=== PATIENT | female | born 1945 | race Caucasian/White ===

== ENCOUNTER 2017-02-20 05:36 | Emergency (ER) | payer MEDICARE, MEDICAID ==
[~2017-02-20] VITALS: Ht 162.6 cm; Wt 66.7 kg
[2017-02-20] MEDS ORDERED: CELEXA40 M1 PO (05:53)
[2017-02-20] MEDS ORDERED: SINGULAIR10 MG PO (05:53)
[2017-02-20] MEDS ORDERED: IBUPROFEN 600M600 MG PO (05:54)
[2017-02-20] MEDS ORDERED: PRILOSEC20 M1 PO (05:54)
[2017-02-20] MEDS ORDERED: BUSPIRONE HCL15 MG PO (05:55)
[2017-02-20 06:10] LABS: HEMOGLOBIN 13.6 g/dL (12.2-16.2); LYMPH # 3.3 K/mm3 (0.7-4.5); LYMPH % 33.2 % (10-50.0)
--- OUTSIDE RECORDS SUMMARY | 2017-02-20 06:29 | External Medical Summary Rpt | CCD ---
Author Author , RAYSHAWN Organization RAYSHAWN Address Unknown Phone [email or web address] Care Team Providers Care Police District Switchboard Operator Name Role Phone [facility], Unavailable Unavailable [facility] Unavailable Unavailable ASSOCIAT, [facility] PETERSON JAM, PETERSON JAM Unavailable Unavailable CHAMBERLAIN MISTY, Unavailable Unavailable CHAMBERLAIN MISTY [facility] Unavailable Unavailable MEDICAL CENTE, [place] Unavailable Unavailable PHYSICIAN PRA, [place] PHYSICIAN PRA [facility]available Unavailable [facility] Unavailable Unavailable ANESTHESIA PSC, [facility] GEOVANY MISTY, GEOVANY Unavailable Unavailable [facility], [facility] Unavailable Unavailable JOEY LAUREN, JOEY LAUREN Unavailable Unavailable [facility] Unavailable Unavailable [facility], [facility] Unavailable Unavailable GROUP P, [facility] SHERI GRE, SHERI GRE Unavailable Unavailable HAJIBRAHIM FESTUS, Unavailable Unavailable [facility] Unavailable Unavailable VISION, [facility] Unavailable Unavailable ASSOCIAT, [facility] Unavailable Unavailable OF STANT, [facility] STANT KOUNS JOSH, KOUNS JOSH Unavailable Unavailable [facility] # Unavailable Unavailable [id number], [facility] # 60057 [facility] & Unavailable Unavailable MEDICAL, [facility] SHERRON FRANCISCO, SHERRON FRANCISCO Unavailable Unavailable [facility], Unavailable Unavailable [facility] Unavailable Unavailable GROUP,, [facility], [facility] Unavailable Unavailable EMERGENCY PHYS, [facility] EMERGENCY PHYS [facility] Unavailable Unavailable [facility] RICARDO JARAMILLO JR EDW, Unavailable Unavailable JR ELLA EDJaved [facility] Unavailable Unavailable SURGERY, [facility] Purpose Continuity of Care Document - 10-22-2010 through 2016 Problems Code Diagnosis DOS Provider Status K529 NONINFECTIV 11-26-2016 [facility] SUR[facility] ITIS & COLITIS UNS K635 POLYP OF 11-26-2016 [facility] SURGERY J449 CHRONIC 02-19-2016 [facility] OBSTRUCTIVE PULMONARY DISEASE UNS M4806 SPINAL 02-19-2016 [facility] STENOSIS LUMBAR REGION N393 STRESS 02-19-2016 [facility] INCONTINENC E FEMALE MALE R159 FULL 02-19-2016 [facility]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 I10 ESSENTIAL 12-18-2015 [facility] PRIMARY HYPERTENSIO N M259 JOINT 12-18-2015 [facility] DISORDER UNSPECIFIED 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 V47264 DERANG POST 11-27-2015 [facility] ORTHOPEDIC MENISC OLD ASSOCIAT TEAR/INJ RT KNEE I214 NON-ST 11-03-2015 [place] ELEVATION REGIONAL MYOCARDIAL PHYSICIAN INFARCTION PRA R05 COUGH 11-03-2015 [place] REG[facility]AL PHYSICIAN PRA R0602 SHORTNESS 11-03-2015 [place] OF BREATH REGIONAL PHYSICIAN PRA C04835 ENCOUNTER 11-03-2015 [facility] EMER[facility]ENC[facility] DEPARTMENT FOR OTHER RADIOLOGY PREPROCEDUR GROUP P AL EXAMINATION V98633 PAIN IN 09-14-2015 [place] [facility] ASSOCIAT M5012 CERVICAL 08-02-2015 [facility] DISC D/O POINTS W/RADICULOP REHAB OF ATHY STANT MID-CERV RGN M5412 RADICULOPAT 07-25-2015 [place] [facility] CERVICAL ORTHOPEDIC REGION ASSOCIAT 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 R37513 PREGLAUCOMA 05-09-2015 JOEY AGUILAR , UNSPECIFIED , UNSPECIFIED EYE P60951 OCULAR 05-09-2015 JOEY AGUILAR HYPERTENSIO N UNSPECIFIED EYE I708 ATHEROSCLER 05-09-2015 JOEY AGUILAR OSIS OF OTHER ARTERIES 4019 UNSPECIFIED 12-01-2014 [facility] ESSENTIAL HEALTH AND HYPERTENSIO WELLNES N 4739 UNSPECIFIED 12-01-2014 [facility] SINUSITIS HEALTH AND WELLNES 496 CHRONIC 12-01-2014 [facility] AIRWAY [facility] AND OBSTRUCTION WELLNES NEC 96269 HOMONYMOUS 10-19-2014 [place] BILATERAL REGIONAL FIELD MEDICAL DEFECTS CENTE VISUAL FIELD 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 OCULAR HYPERTENSIO N 3679 UNSPECIFIED 10-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 DISORDER OF REFRACTION& [place] [address] OTHER 10-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 CHRONIC ALLERGIC CONJUNCTIVI TIS 72379 UNSPECIFIED 10-11-2014 JOEY AGUILAR PREGLAUCOMA 35770 OTHER AND 10-11-2014 JOEY AGUILAR COMBINED FORMS OF SENILE CATARACT 2720 PURE 08-29-2014 [facility] TEROLEMIA GROUP, V700 ROUTINE 08-29-2014 [facility] MEDICAL GROUP, EXAM@HEALTH CARE FACL V770 SCREENING 08-29-2014 [facility] DISORDER GROUP, 7866 SWELLING, 12-29-2013 [place], OR REGIONAL LUMP IN MEDICAL CHEST CENTE 92386 OTH & UNS E 09-16-2012 [facility] COLI INFECTION CLASS ELSW UNS SITE 4589 UNSPECIFIED 09-16-2012 [facility] HYPOTENSION 49284 ACUT 09-16-2012 K[facility]NS J[facility] PYELONEPHRI TIS W/O LES RENAL MEDULRY NECROS 89609 HEMATURIA 09-15-2012 PETERSON JAM UNSPECIFIED 7804 DIZZINESS 09-15-2012 [facility]RAHIM AND FESTUS GIDDINESS 07363 OTHER 09-15-2012 HAJIBRAHIM MALAISE AND FESTUS FATIGUE 31582 ABDOMINAL 09-15-2012 PETERSON JAM PAIN OTHER SPECIFIED SITE 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 18523 DIVERTICULO 08-05-2012 SHERRON FRANCISCO SIS OF COLON V1272 PERSONAL 08-05-2012 JR ELLA HISTORY OF EDW COLONIC POLYPS 60020 PRIMARY 07-27-2012 MED-CARE LOCALIZED DIABETIC & OSTEOARTHRO MEDICAL SIS LOWER LEG 6202 OTHER AND 05-25-2012 CHAMBERLAIN UNSPECIFIED MISTY OVARIAN CYST 7244 THORACIC/IRENE 09-03-2011 [facility] MBOSACRAL NEURITIS/RA DICULITIS UNSPEC 49011 CHRONIC 07-23-2011 SHERRON FRANCISCO CHOLECYSTIT IS 5758 OTHER 07-23-2011 [facility] SPECIFIED H DISORDER OF ANESTHESIA PSC GALLBLADDER 72383 ABDOMINAL 07-23-2011 [facility] PAIN RIGHT PATHOLOGY UPPER ASSOCIAT QUADRANT 4550 INTERNAL 07-10-2011 SHERRON FRANCISCO HEMORRHOIDS WITHOUT MENTION COMP 4011 ESSENTIAL 07-01-2011 GEOVANY MISTY HYPERTENSIO N, BENIGN 05793 PRECORDIAL 07-01-2011 GEOVANY MISTY PAIN 25078 NONSPECIFIC 07-01-2011 GEOVANY MISTY ABNORMAL ELECTROCARD IOGRAM V7281 PRE-OPERATI 07-01-2011 GEOVANY MISTY VE CARDIOVASCU LAR EXAMINATION 82269 SHORTNESS 06-26-2011 GEOVANY MISTY OF BREATH 33038 CORONARY 06-19-2011 GEOVANY MISTY ATHEROSCLER OSIS [place] CORONARY ARTERY 7231 CERVICALGIA 06-17-2011 [facility] STANT 7242 LUMBAGO 06-17-2011 [facility] OF [place] 82023 COR 06-10-2011 SHERRON SINGH ATHEROSLERO UNSPEC TYPE VESSEL [place]/CHERYL T 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 62686 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 3670 HYPERMETROP 06-05-2011 [facility] [place] 56091 CHRONIC 06-05-2011 PAULINE FOLLICULAR AND RAMIREZ CONJUNCTIVI VISION TIS 7243 SCIATICA 05-30-2011 SHERI GRE 09208 SECONDARY 04-09-2011 SHERI GRE LOCALIZED OSTEOARTHRO SIS LOWER LEG 16921 PAIN IN 04-09-2011 SHERI GRE JOINT, LOWER LEG 28025 OSTEOARTHRO 03-25-2011 [place] SIS UNSPEC REGIONAL WHETHER MEDICAL GEN/LOC CENTE LOWER LEG 77649 EFFUSION OF 10-30-2010 [facility] LOWER LEG [place] JOINT RICARDO 7295 PAIN IN 10-30-2010 [facility] TISSUES OF LIMB 15417 SWELLING OF 10-30-2010 [facility] [facility] 52073 DEGEN 10-25-2010 [facility] OSACRAL PHYS INTERVERTEB RAL DISC F32.9 Major depressive disorder, single episode, unspecified I10 Essential (primary) hypertensio n J44.9 Chronic obstructive pulmonary disease, unspecified N39.0 Urinary tract infection Z13.1 Encounter for screening for diabetes mellitus Z13.89 Encounter for screening for other disorder Z68.28 Body mass index (BMI) 28.0-28.9, adult Z68.30 Body mass index (BMI) 30.0-30.9, adult Medications Na ND Rx Da Fi Fi Am Da Di Ph RX Ph St me C No te ll ll ou ys ag ar # ys at rm s nt no ma ic us Or Da si cy ia de te s n re d LO 00 10 11 30 30 00 KR Ac RA 78 -2 -1 .0 00 OG ti TA 15 0- 7- 00 06 ER ve DI 07 20 20 46 NE 70 17 17 91 PH 1 71 AR 10 MA CY MG L- TA 41 BL 1 ET LO 00 08 09 30 30 00 KR Ac RA 78 -3 -2 .0 00 OG ti TA 15 1- 9- 00 06 ER ve DI 07 20 20 42 NE 70 17 17 61 PH 1 98 AR 10 MA CY MG L- TA 41 BL 1 ET LO 00 07 08 30 30 00 KR Ac RA 78 -2 -2 .0 00 OG ti TA 15 9- 5- 00 06 ER ve DI 07 20 20 42 NE 70 17 17 61 PH 1 98 AR 10 MA CY MG L- TA 41 BL 1 ET LO 00 06 07 30 30 00 KR Ac RA 78 -2 -2 .0 00 OG ti TA 15 8- 1- 00 06 ER ve DI 07 20 20 42 NE 70 17 17 61 PH 1 98 AR 10 MA CY MG L- TA 41 BL 1 ET LO 00 05 06 30 30 00 KR Ac RA 78 -3 -2 .0 00 OG ti TA 15 1- 3- 00 06 ER ve DI 07 20 20 42 NE 70 17 17 61 PH 1 98 AR 10 MA CY MG L- TA 41 BL 1 ET LO 00 05 30 30 00 KR Ac RA 78 -0 -0 .0 00 OG ti TA 15 5- 2- 00 06 ER ve DI 07 20 20 42 NE 70 17 17 61 PH 1 98 AR 10 MA CY MG L- TA 41 BL 1 ET LO 00 03 04 30 30 00 KR Ac RA 78 -1 -1 .0 00 OG ti TA 15 6- 4- 00 06 ER ve DI 07 20 20 42 NE 70 17 17 61 PH 1 98 AR 10 MA CY MG L- TA 41 BL 1 ET LO 00 02 03 30 30 00 KR Ac RA 78 -1 -1 .0 00 OG ti TA 15 1- 0- 00 06 ER ve DI 07 20 20 35 NE 70 17 17 29 PH 1 73 AR 10 MA CY MG L- TA 41 BL 1 ET LO 00 01 02 30 30 00 KR Ac RA 78 -0 -0 .0 00 OG ti TA 15 7- 3- 00 06 ER ve DI 07 20 20 35 NE 70 17 17 29 PH 1 73 AR 10 MA CY MG L- TA 41 BL 1 ET IB 55 08 10 2 90 30 KR 60 CA Ac UP 11 -1 -2 .0 OG 66 MP ti RO 10 6- 2- 00 ER 36 BE ve FE 68 20 20 5 LL N 40 11 11 PH 80 5 AR DE 0 MA NN MG CY IS # TA BL 24 ET 41 1 SD 37 08 10 3 30 30 KR 60 CA Ac IL 00 -2 -1 .0 OG 67 MP ti OS 00 6- 9- 00 ER 90 BE ve EC 45 20 20 8 LL 50 11 11 PH OT 4 AR DE C MA NN 20 CY IS .6 # MG 24 41 TA 1 BL ET 00 09 10 5 30 30 KR 60 CA Ac 00 -1 -1 .0 OG 70 MP ti 60 4- 1- 00 ER 60 BE ve 11 20 20 5 LL 73 11 11 PH 1 AR DE MA NN CY IS # 24 41 1 BU 00 09 10 5 60 30 KR 60 CA Ac SP 59 -1 -1 .0 OG 70 MP ti IR 10 4- 1- 00 ER 60 BE ve ON 65 20 20 6 LL E 80 11 11 PH HC 1 AR DE L MA NN 10 CY IS # MG 24 TA 41 BL 1 ET SE 68 09 10 3 30 30 KR 60 CA Ac RT 18 -1 -1 .0 OG 70 MP ti RA 00 2- 1- 00 ER 30 BE ve LI 35 20 20 5 LL NE 30 11 11 PH 6 AR DE HC MA NN L CY IS 10 # 0 MG 24 41 TA 1 BL ET TR 00 09 10 3 30 30 KR 60 CA Ac AZ 60 -1 -1 .0 OG 70 MP ti OD 36 2- 0- 00 ER 30 BE ve ON 16 20 20 4 LL E 12 11 11 PH 10 1 AR DE 0 MA NN MG CY IS # TA BL 24 ET 41 1 SD 37 08 09 3 30 30 KR 60 CA Ac IL 00 -2 -2 .0 OG 67 MP ti OS 00 6- 2- 00 ER 90 BE ve EC 45 20 20 8 LL 50 11 11 PH OT 3 AR DE C MA NN 20 CY IS .6 # MG 24 41 TA 1 BL ET IB 55 08 09 2 90 30 KR 60 CA Ac UP 11 -1 -1 .0 OG 66 MP ti RO 10 6- 6- 00 ER 36 BE ve FE 68 20 20 5 LL N 40 11 11 PH 80 5 AR DE 0 MA NN MG CY IS # TA BL 24 ET 41 1 00 09 09 5 30 30 KR 60 CA Ac 00 -1 -1 .0 OG 70 MP ti 60 4- 4- 00 ER 60 BE ve 11 20 20 5 LL 73 11 11 PH 1 AR DE MA NN CY IS # 24 41 1 BU 00 09 09 5 60 30 KR 60 CA Ac SP 59 -1 -1 .0 OG 70 MP ti IR 10 4- 4- 00 ER 60 BE ve ON 65 20 20 6 LL E 80 11 11 PH HC 1 AR DE L MA NN 10 CY IS # MG 24 TA 41 BL 1 ET SE 68 09 09 3 30 30 KR 60 CA Ac RT 18 -1 -1 .0 OG 70 MP ti RA 00 2- 3- 00 ER 30 BE ve LI 35 20 20 5 LL NE 30 11 11 PH 6 AR DE HC MA NN L CY IS 10 # 0 MG 24 41 TA 1 BL ET TR 00 09 09 3 30 30 KR 60 CA Ac AZ 60 -1 -1 .0 OG 70 MP ti OD 36 2- 2- 00 ER 30 BE ve ON 16 20 20 4 LL E 12 11 11 PH 10 1 AR DE 0 MA NN MG CY IS # TA BL 24 ET 41 1 SD 37 08 08 3 30 30 KR 60 CA Ac IL 00 -2 -2 .0 OG 67 MP ti OS 00 6- 6- 00 ER 90 BE ve EC 45 20 20 8 LL 50 11 11 PH OT 3 AR DE C MA NN 20 CY IS .6 # MG 24 41 TA 1 BL ET SE 68 03 08 5 30 30 KR 60 SE Ac RT 18 -0 -1 .0 OG 46 IT ti RA 00 8- 7- 00 ER 28 Z ve LI 35 20 20 0 SC NE 30 11 11 PH OT 6 AR T HC MA L CY 10 # 0 MG 24 41 TA 1 BL ET IB 55 08 08 2 90 30 KR 60 CA Ac UP 11 -1 -1 .0 OG 66 MP ti RO 10 6- 6- 00 ER 36 BE ve FE 68 20 20 5 LL N 40 11 11 PH 80 5 AR DE 0 MA NN MG CY IS # TA BL 24 ET 41 1 00 03 08 5 30 30 KR 60 SE Ac 00 -0 -1 .0 OG 46 IT ti 60 8- 4- 00 ER 28 Z ve 11 20 20 1 SC 73 11 11 PH OT 1 AR T MA CY # 24 41 1 BU 00 03 08 5 60 30 KR 60 SE Ac SP 59 -0 -1 .0 OG 46 IT ti IR 10 8- 4- 00 ER 27 Z ve ON 65 20 20 8 SC E 80 11 11 PH OT HC 1 AR T L MA 10 CY # MG 24 TA 41 BL 1 ET TR 00 03 08 5 30 30 KR 60 SE Ac AZ 60 -0 -1 .0 OG 46 IT ti OD 36 8- 4- 00 ER 27 Z ve ON 16 20 20 9 SC E 12 11 11 PH OT 10 1 AR T 0 MA MG CY # TA BL 24 ET 41 1 TR 65 08 08 0 20 2 KR 44 MO Ac AM 16 -1 -1 .0 OG 71 RG ti AD 20 1- 1- 00 ER 24 AN ve OL 62 20 20 6 75 11 11 PH JR HC 0 AR L MA SHANNAN 50 CY HN # R MG 24 TA 41 BL 1 ET ME 59 08 08 0 21 6 KR 60 MO Ac TH 74 -1 -1 .0 OG 65 RG ti YL 60 1- 1- 00 ER 65 AN ve SD 00 20 20 0 ED 10 11 11 PH JR NI 3 AR SO MA SHANNAN LO CY HN NE # R 4 24 MG 41 1 DO SE PK SD 00 08 08 0 6. 25 KR 60 MO Ac OV 08 -0 -0 70 OG 65 OR ti EN 51 8- 8- 0 ER 10 E ve TI 13 20 20 2 SC L 20 11 11 PH OT HF 1 AR T A MA G 90 CY # MC G 24 IN 41 VILCHIS 1 LE R Encounters Encounter Start End Date Code Location Performer Type Date [facility] [place] - 6 6 [facility] 6 6 [facility] 5 5 [facility] - 5 5 [facility] [place] - 5 5 [facility] [place] - 4 4 [facility] [place] - 2 2 [facility] [place] - 2 2 [facility] - 1 [facility]
--- OUTSIDE RECORDS SUMMARY | 2017-02-20 06:29 | External Medical Summary Rpt | CCD ---
Author Author , RAYSHAWN Organization RAYSHAWN Address Unknown Phone [email or web address] Care Team Providers Care Custodial Engineer Name Role Phone [facility], Unavailable Unavailable [facility] Unavailable Unavailable ASSOCIAT, [facility] PETERSON JAM, PETERSON JAM Unavailable Unavailable CHAMBERLAIN MISTY, Unavailable Unavailable CHAMBERLAIN MISTY [facility] Unavailable Unavailable MEDICAL CENTE, [facility] Unavailable Unavailable PHYSICIAN PRA, [facility] PHYSICIAN PRA [facility], Unavailable Unavailable [facility] Unavailable Unavailable ANESTHESIA PSC, [facility] ANESTHESIA [facility]SC GEOVANY MISTY, GEOVANY Unavailable Unavailable [facility], [facility] Unavailable Unavailable JOEY LAUREN, JOEY LAUREN Unavailable Unavailable [facility] Unavailable Unavailable [facility] Unavailable Unavailable GROUP P, [facility] SHERI GRE, SHERI GRE Unavailable Unavailable [facility] FE[facility], Unavailable Unavailable [facility] Unavailable Unavailable VISION, [facility] Unavailable Unavailable ASSOCIAT, [facility] Unavailable Unavailable OF STANT, [facility] KOUNS JOSH, KOUNS JOSH Unavailable Unavailable [facility] # Unavailable Unavailable [id number], [facility] # [id number] [facility] & Unavailable Unavailable MEDICAL, [facility] SHERRON FRANCISCO, SHERRON FRANCISCO Unavailable Unavailable [facility], Unavailable Unavailable [facility] Unavailable Unavailable GROUP,, [facility], [facility] Unavailable Unavailable EMERGENCY PHYS, [facility] Unavailable Unavailable [facility] JARAMILLO JR EDW, Unavailable Unavailable JR ELLA EDJaved [facility] Unavailable Unavailable SURGERY, [facility] Purpose Continuity of Care Document - 10-22-2010 through 2016 Problems Code Diagnosis DOS Provider Status K529 NONINFECTIV 11-26-2016 [facility] SURGERY ITIS & COLITIS UNS K635 POLYP OF 11-26-2016 [facility] SURGERY J449 CHRONIC 02-19-2016 [facility] OBSTRUCTIVE PULMONARY DISEASE UNS M4806 SPINAL 02-19-2016 [facility] STENOSIS LUMBAR REGION N393 STRESS 02-19-2016 [facility] INCONTINENC E FEMALE MALE R159 FULL 02-19-2016 [facility]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 I10 ESSENTIAL 12-18-2015 [facility] PRIMARY HYPERTENSIO N M259 JOINT 12-18-2015 [facility] DISORDER UNSPECIFIED 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 [id number] DERANG POST 11-27-2015 [facility] ORTHOPEDIC MENISC OLD ASSOCIAT TEAR/INJ RT KNEE I214 NON-ST 11-03-2015 [place] ELEVATION REGIONAL MYOCARDIAL PHYSICIAN INFARCTION PRA R05 COUGH 11-03-2015 [place] REGIONAL PHYSICIAN PRA R0602 SHORTNESS 11-03-2015 [place] OF BREATH REGIONAL PHYSICIAN PRA S19356 ENCOUNTER 11-03-2015 [facility] OTHER RADIOLOGY PREPROCEDUR GROUP P AL EXAMINATION Q34598 PAIN IN 09-14-2015 [place] RIGHT [facility]NEE ORTHOPEDIC ASSOCIAT M5012 CERVICAL 08-02-2015 [facility] DISC D/O POINTS W/RADICULOP REHAB OF ATHY STANT MID-CERV RGN M5412 RADICULOPAT 07-25-2015 [place] HY CERVICAL ORTHOPEDIC REGION ASSOCIAT K80228 COMBINED 05-09-2015 JOEY 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 X88904 PREGLAUCOMA 05-09-2015 JOEY AGUILAR , UNSPECIFIED , UNSPECIFIED EYE Q73671 OCULAR 05-09-2015 JOEY AGUILAR HYPERTENSIO N UNSPECIFIED EYE I708 ATHEROSCLER 05-09-2015 JOEY AGUILAR OSIS OF OTHER ARTERIES 4019 UNSPECIFIED 12-01-2014 [facility] ESSENTIAL HEALTH AND HYPERTENSIO WELLNES N 4739 UNSPECIFIED 12-01-2014 [facility] SINUSITIS HEALTH AND WELLNES 496 CHRONIC 12-01-2014 [facility]WAY [facility] AND OBSTRUCTION WELLNES NEC 12946 HOMONYMOUS 10-19-2014 [place] BILATERAL REGIONAL FIELD MEDICAL DEFECTS CENTE VISUAL FIELD 05354 BORDERLINE 10-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 GLAUCOMA WITH OCULAR HYPERTENSIO N 3679 UNSPECIFIED 10-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 DISORDER OF REFRACTION& [place] [address] OTHER 10-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 CHRONIC ALLERGIC CONJUNCTIVI TIS 36550 UNSPECIFIED 10-11-2014 JOEY AGUILAR PREGLAUCOMA 41168 OTHER AND 10-11-2014 JOEY AGUILAR COMBINED FORMS OF SENILE CATARACT 2720 PURE 08-29-2014 [facility] TEROLEMIA GROUP, V700 ROUTINE 08-29-2014 [facility] MEDICAL GROUP, EXAM@HEALTH CARE FACL V770 SCREENING 08-29-2014 [facility] DISORDER GROUP, 7866 SWELLING, 12-29-2013 [place], OR REGIONAL LUMP IN MEDICAL CHEST CENTE 65717 OTH & UNS E 09-16-2012 [facility] COLI INFECTION CLASS ELSW UNS SITE 4589 UNSPECIFIED 09-16-2012 [facility] HYPOTENSION 86976 ACUT 09-16-2012 K[facility]NS JOS[facility] PYELONEPHRI TIS W/O LES RENAL MEDULRY NECROS 10677 HEMATURIA 09-15-2012 PETERSON JAM UNSPECIFIED 7804 DIZZINESS 09-15-2012 HAJIB[facility]HIM AND FESTUS GIDDINESS 62297 OTHER 09-15-2012 HAJIBRAHIM MALAISE AND FESTUS FATIGUE 88480 ABDOMINAL 09-15-2012 PETERSON JAM PAIN OTHER SPECIFIED SITE 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 21735 DIVERTICULO 08-05-2012 SHERRON FRANCISCO SIS OF COLON V1272 PERSONAL 08-05-2012 JR ELLA HISTORY OF EDW COLONIC POLYPS 43075 PRIMARY 07-27-2012 [facility] LOCALIZED DIABETIC & OSTEOARTHRO MEDICAL SIS LOWER LEG 6202 OTHER AND 05-25-2012 CHAMBERLAIN UNSPECIFIED MISTY OVARIAN CYST 7244 THORACIC/IRENE 09-03-2011 [facility] MBOSACRAL NEURITIS/RA DICULITIS UNSPEC 13714 CHRONIC 07-23-2011 SHERRON FRANCISCO CHOLECYSTIT IS 5758 OTHER 07-23-2011 [facility] SPECIFIED H DISORDER OF ANESTHESIA PSC GALLBLADDER 57466 ABDOMINAL 07-23-2011 [facility] PAIN RIGHT PATHOLOGY UPPER ASSOCIAT QUADRANT 4550 INTERNAL 07-10-2011 SHERRON FRANCISCO HEMORRHOIDS WITHOUT MENTION COMP 4011 ESSENTIAL 07-01-2011 GEOVANY MISTY HYPERTENSIO N, BENIGN 26452 PRECORDIAL 07-01-2011 GEOVANY MISTY PAIN 26497 NONSPECIFIC 07-01-2011 GEOVANY MISTY ABNORMAL ELECTROCARD IOGRAM V7281 PRE-OPERATI 07-01-2011 GEOVANY MISTY VE CARDIOVASCU LAR EXAMINATION 90216 SHORTNESS 06-26-2011 GEOVANY MISTY OF BREATH 45965 CORONARY 06-19-2011 GEOVANY MISTY ATHEROSCLER OSIS [place] CORONARY ARTERY 7231 CERVICALGIA 06-17-2011 [facility] 7242 LUMBAGO 06-17-2011 [facility] OF [place] 58194 COR 06-10-2011 SHERRON SINGH ATHEROSLERO UNSPEC TYPE VESSEL [place]/CHERYL T 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 09738 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 3670 HYPERMETROP 06-05-2011 [facility] [place] 36391 CHRONIC 06-05-2011 PAULINE FOLLICULAR AND RAMIREZ CONJUNCTIVI VISION TIS 7243 SCIATICA 05-30-2011 SHERI GRE 09784 SECONDARY 04-09-2011 [facility] GRE LOCALIZED OSTEOARTHRO SIS LOWER LEG 46689 PAIN IN 04-09-2011 SHERI GRE JOINT, LOWER LEG 67782 OSTEOARTHRO 03-25-2011 [place] SIS UNSPEC REGIONAL WHETHER MEDICAL GEN/LOC CENTE LOWER LEG 39158 EFFUSION OF 10-30-2010 [facility] LOWER LEG [place] JOINT RICARDO 7295 PAIN IN 10-30-2010 [facility] TISSUES OF LIMB 78380 SWELLING OF 10-30-2010 [facility] [place] [facility] 18521 DEGEN 10-25-2010 [facility] OSACRAL [...] End Date Code Location Performer Type Date [facility] [place] - [address] [facility], [facility] 6 6 [facility] 5 5 [facility] - [address] [facility] - [address] [facility] - [address] [facility] [place] - [address] [facility] [place] - [address] [facility] - 1 [facility]
--- OUTSIDE RECORDS SUMMARY | 2017-02-20 06:31 | External Medical Summary Rpt | CCD ---
Author Author , RAYSHAWN Organization [facility] Address Unknown Phone [email or web address] Care Team Providers Care Wireline Operator Name Role Phone [facility], Unavailable Unavailable [facility] Unavailable Unavailable ASSOCIAT, [facility] PETERSON JAM, PETERSON JAM Unavailable Unavailable CHAMBERLAIN MISTY, Unavailable Unavailable CHAMBERLAIN MISTY [facility] Unavailable Unavailable MEDICAL CENTE, [facility] Unavailable Unavailable PHYSICIAN PRA, [facility], Unavailable Unavailable [facility] Unavailable Unavailable ANESTHESIA P[facility], [facility] GEOVANY MISTY, GEOVANY Unavailable Unavailable [facility], [facility] Unavailable Unavailable JOEY LAUREN, JOEY LAUREN Unavailable Unavailable [facility] Unavailable Unavailable [facility], [facility] Unavailable Unavailable GROUP P, [facility] SHERI GRE, SHERI GRE Unavailable Unavailable HAJIBRAHIM FEST[facility], Unavailable Unavailable [facility] Unavailable Unavailable V[facility], [facility] Unavailable Unavailable ASSOCIAT, [facility] Unavailable Unavailable OF STANT, [facility] KOUNS JOSH, KOUNS JOSH Unavailable Unavailable [facility] # Unavailable Unavailable [id number], [facility] # [id number] [facility] & [facility]available Unavailable MEDICAL, [facility] SHERRON FRANCISCO, SHERRON FRANCISCO Unavailable Unavailable [facility], Unavailable Unavailable [facility] Unavailable Unavailable GROUP,, [facility], [facility] Unavailable Unavailable EMERGENCY PHYS, [facility] Unavailable Unavailable [facility] RICARDO JARAMILLO JR EDW, Unavailable Unavailable JR ELLA EDW [facility] Unavailable Unavailable SURGERY, [facility] Purpose Continuity of Care Document - 10-22-2010 through 2016 Problems Code Diagnosis DOS Provider Status K529 NONINFECTIV 11-26-2016 [facility] SURGERY ITIS & COLITIS UNS K635 POLYP OF 11-26-2016 [facility] J449 CHRONIC 02-19-2016 [facility] OBSTRUCTIVE PULMONARY DISEASE UNS M4806 SPINAL 02-19-2016 [facility] STENOSIS LUMBAR REGION N393 STRESS 02-19-2016 [facility] INCONTINENC E FEMALE MALE 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 02-19-2016 [facility]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 I10 ESSENTIAL 12-18-2015 [facility] PRIMARY HYPERTENSIO N M259 JOINT 12-18-2015 [facility] DISORDER UNSPECIFIED 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 K95804 DERANG POST 11-27-2015 [facility] ORTHOPEDIC MENISC OLD ASSOCIAT TEAR/INJ RT KNEE I214 NON-ST 11-03-2015 [facility] MYOCARDIAL PHYSICIAN INFARCTION PRA R05 COUGH 11-03-2015 [facility] PHYSICIAN PRA R0602 SHORTNESS 11-03-2015 [place] OF BREATH REGIONAL PHYSICIAN PRA P24054 ENCOUNTER 11-03-2015 [facility] RAD[facility] PREPROCEDUR GROUP P AL EXAMINATION B68806 PAIN IN 09-14-2015 [facility]IC ASSOCIAT M5012 CERVICAL 08-02-2015 [facility] DISC D/O POINTS W/RADICULOP REHAB OF [place] MID-CERV RGN M5412 RADICULOPAT 07-25-2015 [facility]THOP[facility]IC REGION ASSOCIAT 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 A66567 PREGLAUCOMA 05-09-2015 JOEY AGUILAR , UNSPECIFIED , UNSPECIFIED EYE O49557 OCULAR 05-09-2015 JOEY AGUILAR HYPERTENSIO N UNSPECIFIED EYE I708 ATHEROSCLER 05-09-2015 JOEY AGUILAR OSIS OF OTHER ARTERIES 4019 UNSPECIFIED 12-01-2014 [facility] ESSENTIAL HEALTH AND HYPERTENSIO WELLNES N 4739 UNSPECIFIED 12-01-2014 [facility] SINUSITIS HEALTH AND WELLNES 496 CHRONIC 12-01-2014 [facility] AIRWAY HEALTH AND OBSTRUCTION WELLNES NEC 07517 HOMONYMOUS 10-19-2014 [place] BILATERAL REGIONAL FIELD MEDICAL DEFECTS CENTE VISUAL FIELD 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 3679 UNSPECIFIED 10-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 DISORDER OF REFRACTION& [place] [address] OTHER 10-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 CHRONIC ALLERGIC CONJUNCTIVI TIS 96277 UNSPECIFIED 10-11-2014 JOEY AGUILAR PREGLAUCOMA 14739 OTHER AND 10-11-2014 JOEY AGUILAR COMBINED FORMS OF SENILE CATARACT 2720 PURE 08-29-2014 [facility] TEROLEMIA GROUP, V700 ROUTINE 08-29-2014 [facility] MEDICAL GROUP, EXAM@HEALTH CARE FACL V770 SCREENING 08-29-2014 [facility] DISORDER GROUP, 7866 SWELLING, 12-29-2013 [place], OR REGIONAL LUMP IN MEDICAL CHEST CENTE 58651 OTH & UNS E 09-16-2012 KOUNS J[facility] COLI INFECTION CLASS ELSW UNS SITE 4589 UNSPECIFIED 09-16-2012 [facility] HYPOTENSION 28580 ACUT 09-16-2012 KOUNS JOSH PYELONEPHRI TIS W/O LES RENAL MEDULRY NECROS 95744 HEMATURIA 09-15-2012 PETERSON JAM UNSPECIFIED 7804 DIZZINESS 09-15-2012 HAJIBRAHIM AND FESTUS GIDDINESS 82421 OTHER 09-15-2012 HAJIBRAHIM MALAISE AND FESTUS FATIGUE 01536 ABDOMINAL 09-15-2012 PETERSON JAM PAIN OTHER SPECIFIED SITE 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 05462 DIVERTICULO 08-05-2012 SHERRON FRANCISCO SIS OF COLON V1272 PERSONAL 08-05-2012 JR ELLA HISTORY OF EDW COLONIC POLYPS 57188 PRIMARY 07-27-2012 [facility] LOCALIZED DIABETIC & OSTEOARTHRO MEDICAL SIS LOWER LEG 6202 OTHER AND 05-25-2012 CHAMBERLAIN UNSPECIFIED MISTY OVARIAN CYST 7244 THORACIC/IRENE 09-03-2011 [facility] MBOSACRAL NEURITIS/RA DICULITIS UNSPEC 45794 CHRONIC 07-23-2011 SHERRON FRANCISCO CHOLECYSTIT IS 5758 OTHER 07-23-2011 [facility] SPECIFIED H DISORDER OF ANESTHESIA PSC GALLBLADDER 67101 ABDOMINAL 07-23-2011 [facility] RIGHT PATHOLOGY UPPER ASSOCIAT QUADRANT 4550 INTERNAL 07-10-2011 SHERRON FRANCISCO HEMORRHOIDS WITHOUT MENTION COMP 4011 ESSENTIAL 07-01-2011 GEOVANY MISTY HYPERTENSIO N, BENIGN 85011 PRECORDIAL 07-01-2011 GEOVANY MISTY PAIN 86757 NONSPECIFIC 07-01-2011 GEOVANY MISTY ABNORMAL ELECTROCARD IOGRAM V7281 PRE-OPERATI 07-01-2011 GEOVANY MISTY VE CARDIOVASCU LAR EXAMINATION 63058 SHORTNESS 06-26-2011 GEOVANY MISTY OF BREATH 17538 CORONARY 06-19-2011 GEOVANY MISTY ATHEROSCLER OSIS [place] CORONARY ARTERY 7231 CERVICALGIA 06-17-2011 [facility] 7242 LUMBAGO 06-17-2011 [facility] [address] COR 06-10-2011 SHERRON SINGH ATHEROSLERO UNSPEC TYPE VESSEL [place]/CHERYL T 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 11936 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 3670 HYPERMETROP 06-05-2011 [facility] [place] 50483 CHRONIC 06-05-2011 PAULINE FOLLICULAR AND RAMIREZ CONJUNCTIVI VISION TIS 7243 SCIATICA 05-30-2011 SHERI GRE 95422 SECONDARY 04-09-2011 SHERI GRE LOCALIZED OSTEOARTHRO SIS LOWER LEG 10977 PAIN IN 04-09-2011 SHERI GRE JOINT, LOWER LEG 23535 OSTEOARTHRO 03-25-2011 [place] SIS UNSPEC REGIONAL WHETHER MEDICAL GEN/LOC CENTE LOWER LEG 09662 EFFUSION OF 10-30-2010 [facility] LOWER LEG [facility] JOINT RICARDO 7295 PAIN IN 10-30-2010 [facility] TISSUES OF LIMB 67543 SWELLING OF 10-30-2010 [facility] [facility] 07978 DEGEN 10-25-2010 [facility] OSACRAL PHYS INTERVERTEB RAL DISC Medications Na ND Rx Da Fi Fi [...] 00 OG ti TA 15 6- 4- 06 ER ve DI 07 20 20 [...] # TA BL 24 ET 41 1 WA 37 08 10 3 30 30 KR 60 CA Ac IL 00 -2 -1 .0 OG 67 MP ti OS 00 6- 9 ER 90 BE ve EC 45 20 20 8 LL 50 11 11 PH OT 4 AR DE C MA NN 20 CY IS .6 # MG 24 41 TA 1 BL ET SE 68 09 10 3 30 [...] TA 41 BL 1 ET TR 00 09 10 3 30 30 KR 60 CA Ac AZ 60 -1 -1 .0 OG 70 MP ti OD 36 2- 0- 00 ER 30 BE ve ON 16 20 20 4 LL E 12 11 11 PH 10 1 AR DE 0 MA NN MG CY IS # TA BL 24 ET 41 1 WA 37 08 09 3 30 30 KR [...] # TA BL 24 ET 41 1 WA 37 08 08 3 30 30 KR [...] 1- 1- 00 ER 65 AN ve WA 00 20 20 0 ED 10 11 11 PH JR NI 3 AR SO MA SHANNAN LO CY HN NE # R 4 24 MG 41 1 DO SE PK WA 00 08 08 0 6. 25 KR [...] End Date Code Location Performer Type Date [facility] - 6 6 [facility] 6 6 [facility] 5 5 [facility] - 5 5 [facility] - 5 5 [facility] - 4 4 [facility] [place] - 2 2 [facility] [place] - 2 2 [facility] - 1 [facility]
--- OUTSIDE RECORDS SUMMARY | 2017-02-20 06:31 | External Medical Summary Rpt | CCD ---
Author Author , RAYSHAWN Organization [facility] Address Unknown Phone [email or web address] Care Team Providers Care Employee Benefits Specialist Name Role Phone [facility], Unavailable Unavailable [facility] Unavailable Unavailable ASSOCIAT, [facility] PETERSON JAM, PETERSON JAM Unavailable Unavailable CHAMBERLAIN MISTY, Unavailable Unavailable CHAMBERLAIN MISTY [facility] Unavailable Unavailable MEDICAL CENTE, [facility] Unavailable Unavailable PHYSICIAN PRA, [facility], Unavailable Unavailable [facility] Unavailable Unavailable ANESTHESIA PSC, [facility] GEOVANY MISTY, GEOVANY Unavailable Unavailable [facility], [facility] Unavailable Unavailable JOEY LAUREN, JOEY LAUREN Unavailable Unavailable [facility] Unavailable Unavailable [facility], [facility] Unavailable Unavailable GROUP P, [facility] SHERI GRE, SHERI GRE Unavailable Unavailable [facility], Unavailable Unavailable [facility] Unavailable Unavailable VISION, [facility] Unavailable Unavailable ASSOCIAT, [facility] Unavailable Unavailable OF STANT, [facility] KOUNS JOSH, KOUNS JOSH Unavailable Unavailable [facility] # Unavailable Unavailable [id number], [facility] # [id number] [facility] & Unavailable Unavailable MEDICAL, [facility] SHERRON FRANCISCO, SHERRON FRANCISCO Unavailable Unavailable [facility], Unavailable Unavailable [facility] Unavailable Unavailable GROUP,, [facility], [facility] Unavailable Unavailable EMERGENCY PHYS, [facility] EMERGENCY PHYS [facility] Unavailable Unavailable [facility] JR EDW, Unavailable Unavailable JR ELLA EDW [facility] Unavailable Unavailable SURGERY, [facility] Purpose Continuity of Care Document - 10-22-2010 through 2016 Problems Code Diagnosis DOS Provider Status K529 NONINFECTIV 11-26-2016 [facility] SURGERY ITIS & COLITIS UNS K635 POLYP OF 11-26-2016 [facility] GENERAL [facility] J449 CHRONIC 02-19-2016 [facility] OBSTRUCTIVE PULMONARY DISEASE UNS M4806 SPINAL 02-19-2016 [facility] STENOSIS LUMBAR REGION N393 STRESS 02-19-2016 [facility] INCONTINENC E FEMALE MALE R159 FULL 02-19-2016 [facility]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 I10 ESSENTIAL 12-18-2015 [facility] PRIMARY HYPERTENSIO N M259 JOINT 12-18-2015 [facility] DISORDER UNSPECIFIED 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 Q90056 DERANG POST 11-27-2015 [facility] MENISC OLD ASSOCIAT TEAR/INJ RT KNEE I214 NON-ST 11-03-2015 [facility] MYOCARDIAL PHYSICIAN INFARCTION PRA R05 COUGH 11-03-2015 [place] REG[facility] PHYSICIAN PRA R0602 SHORTNESS 11-03-2015 [place] OF BREATH REGIONAL PHYSICIAN PRA C45057 ENCOUNTER 11-03-2015 [facility] PREPROCEDUR GROUP P AL EXAMINATION V94309 PAIN IN 09-14-2015 [facility]IC ASSOCIAT M5012 CERVICAL 08-02-2015 [facility] DISC D/O POINTS W/RADICULOP REHAB OF PASCUAL [place]ON[place] MID-CERV RGN M5412 RADICULOPAT 07-25-2015 [facility] CERVICAL ORTHOPEDIC REGION ASSOCIAT S61094 COMBINED 05-09-2015 JOEY 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 L18853 PREGLAUCOMA 05-09-2015 JOEY AGUILAR , UNSPECIFIED , UNSPECIFIED EYE T40131 OCULAR 05-09-2015 JOEY AGUILAR HYPERTENSIO N UNSPECIFIED EYE I708 ATHEROSCLER 05-09-2015 JOEY AGUILAR OSIS OF OTHER ARTERIES 4019 UNSPECIFIED 12-01-2014 [facility] ESSENTIAL HEALTH AND HYPERTENSIO WELLNES N 4739 UNSPECIFIED 12-01-2014 [facility] SINUSITIS HEALTH AND WELLNES 496 CHRONIC 12-01-2014 [facility] AND OBSTRUCTION WELLNES NEC 84794 HOMONYMOUS 10-19-2014 [place] BILATERAL REGIONAL FIELD MEDICAL DEFECTS CENTE VISUAL FIELD 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 10-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 GLAUCOMA WITH OCULAR HYPERTENSIO N 3679 UNSPECIFIED 10-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 DISORDER OF REFRACTION& [place] [address] OTHER 10-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 CHRONIC ALLERGIC CONJUNCTIVI TIS 49465 UNSPECIFIED 10-11-2014 JOEY AGUILAR PREGLAUCOMA 99168 OTHER AND 10-11-2014 JOEY AGUILAR COMBINED FORMS OF SENILE CATARACT 2720 PURE 08-29-2014 [facility] TEROLEMIA GROUP, V700 ROUTINE 08-29-2014 [facility] MEDICAL [facility], EXAM@HEALTH CARE FACL V770 SCREENING 08-29-2014 [facility] DISORDER GROUP, 7866 SWELLING, 12-29-2013 [place], OR REGIONAL LUMP IN MEDICAL CHEST CENTE 71923 OTH & UNS E 09-16-2012 KOUNS JOSH COLI INFECTION CLASS ELSW UNS SITE 4589 UNSPECIFIED 09-16-2012 K[facility]NS JOS[facility] HYPOTENSION 43812 ACUT 09-16-2012 KOUNS JOSH PYELONEPHRI TIS W/O LES RENAL MEDULRY NECROS 46581 HEMATURIA 09-15-2012 PETERSON JAM UNSPECIFIED 7804 DIZZINESS 09-15-2012 HAJIBRAHIM AND FESTUS GIDDINESS 21395 OTHER 09-15-2012 HAJIBRAHIM MALAISE AND FESTUS FATIGUE 39805 ABDOMINAL 09-15-2012 PETERSON JAM PAIN OTHER SPECIFIED SITE 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 09447 DIVERTICULO 08-05-2012 SHERRON FRANCISCO SIS OF COLON V1272 PERSONAL 08-05-2012 JR ELLA HISTORY OF EDW COLONIC POLYPS 98370 PRIMARY 07-27-2012 [facility] LOCALIZED DIABETIC & OSTEOARTHRO MEDICAL SIS LOWER LEG 6202 OTHER AND 05-25-2012 CHAMBERLAIN UNSPECIFIED MISTY OVARIAN CYST 7244 THORACIC/IRENE 09-03-2011 [facility] MBOSACRAL NEURITIS/RA DICULITIS UNSPEC 68070 CHRONIC 07-23-2011 SHERRON FRANCISCO CHOLECYSTIT IS 5758 OTHER 07-23-2011 [facility] SPECIFIED H DISORDER OF ANESTHESIA PSC GALLBLADDER 27480 ABDOMINAL 07-23-2011 [facility] RIGHT PATHOLOGY UPPER ASSOCIAT QUADRANT 4550 INTERNAL 07-10-2011 SHERRON FRANCISCO HEMORRHOIDS WITHOUT MENTION COMP 4011 ESSENTIAL 07-01-2011 GEOVANY MISTY HYPERTENSIO N, BENIGN 08095 PRECORDIAL 07-01-2011 GEOVANY MISTY PAIN 44420 NONSPECIFIC 07-01-2011 GEOVANY MISTY ABNORMAL ELECTROCARD IOGRAM V7281 PRE-OPERATI 07-01-2011 GEOVANY MISTY VE CARDIOVASCU LAR EXAMINATION 12064 SHORTNESS 06-26-2011 GEOVANY MISTY OF BREATH 19360 CORONARY 06-19-2011 GEOVANY MISTY ATHEROSCLER OS[place] CORONARY ARTERY 7231 CERVICALGIA 06-17-2011 [facility] 7242 LUMBAGO 06-17-2011 [facility] OF [facility] 13541 COR 06-10-2011 SHERRON SINGH ATHEROSLERO UNSPEC TYPE VESSEL [place]/CHERYL T 2246 BENIGN 06-05-2011 PAUILNE NEOPLASM OF AND RAMIREZ CHOROID VISION 99020 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 3670 HYPERMETROP 06-05-2011 [facility] [place] 33943 CHRONIC 06-05-2011 PAULINE FOLLICULAR AND RAMIREZ CONJUNCTIVI VISION TIS 7243 SCIATICA 05-30-2011 SHERI GRE 19283 SECONDARY 04-09-2011 SHERI GRE LOCALIZED OSTEOARTHRO SIS LOWER LEG 99663 PAIN IN 04-09-2011 SHERI GRE JOINT, LOWER LEG 08590 OSTEOARTHRO 03-25-2011 [place] SIS UNSPEC REGIONAL WHETHER MEDICAL GEN/LOC CENTE LOWER LEG 44578 EFFUSION OF 10-30-2010 [facility] LOWER LEG [facility] JOINT RICARDO 7295 PAIN IN 10-30-2010 [facility] TISSUES OF LIMB 01959 SWELLING OF 10-30-2010 [facility] [facility] 66575 DEGEN 10-25-2010 [facility]Y OSACRAL [...] # TA BL 24 ET 41 1 MI 37 08 10 3 30 30 KR [...] # TA BL 24 ET 41 1 MI 37 08 09 3 30 30 KR [...] # TA BL 24 ET 41 1 MI 37 08 08 3 30 30 KR [...] 1- 1- 00 ER 65 AN ve MI 00 20 20 0 ED 10 11 11 PH JR NI 3 AR SO MA SHANNAN LO CY HN NE # R 4 24 MG 41 1 DO SE PK MI 00 08 08 0 6. 25 KR [...] End Date Code Location Performer Type Date [facility] [place] - 6 6 [facility] 6 6 [facility], [facility] 5 5 [facility] [place] [facility] 5 5 [facility] [place] - 5 5 [facility] [place] - 4 4 [facility] [place] - 2 2 [facility] - 2 2 [facility] - 1 [facility]
--- OUTSIDE RECORDS SUMMARY | 2017-02-20 06:32 | External Medical Summary Rpt | CCD ---
Demographics Preferred Language Italian Marital Status Unknown Restorationist Affiliation Unknown Race Unknown Ethnic Group Unknown Author Author , RAYSHAWN TABARES Address Unknown Phone Immunization Unable to retrieve immunization data due to connection failure with Immunization Registry. Please try again later.
--- OUTSIDE RECORDS SUMMARY | 2017-02-20 06:32 | External Medical Summary Rpt ---
Author Author RAYSHAWN Production, RAYSHAWN Production Organization [employer] Address Unknown Phone Unavailable Results CBC W Auto Differential panel in Blood Observa Value Referen Units Interpr Notes Date tion ce etation Range Basophils 0 - 0.2 K/MM3 Normal No Feb 20 informati 2016 6:00 [#/volume on in AM ] in source Blood by data Automated count Basophils 0.1 - 2.0 % Normal No Feb 20 / informati 2017 6:00 leukocyte on in AM s in source Blood by data Automated count Eosinophi 0.0 - 0.4 K/mm3 Normal No Feb 20 ls informati 2017 6:00 [#/volume on in AM ] in source Blood by data Automated count Eosinophi 0.1 - % Normal No Feb 20 ls/100 12.0 informati 2016 6:00 leukocyte on in AM s in source Blood by data Automated count Granulocy 1.8 - 7.8 K/mm3 Normal No Feb 20 alfredo informati 2017 6:00 [#/volume on in AM ] in source Blood by data Automated count Granulocy 37.0 - % Normal No Feb 20 alfredo/100 80.0 informati 2016 6:00 leukocyte on in AM s in source Blood by data Automated count Hematocri 37.0 - % Normal No Feb 20 t [Volume 47.0 informati 2016 6:00 on in AM Fraction] source of Blood data Hemoglobi 12.2 - g/dL Normal No Feb 20 n 16.2 informati 2016 6:00 [Mass/vol on in AM ume] in source Blood data Lymphocyt 0.7 - 4.5 K/mm3 Normal No Feb 20 es informati 2017 6:00 [#/volume on in AM ] in source Unspecifi data ed specimen by Automated count Lymphocyt 10 - 50.0 % Normal No Feb 20 es informati 2016 6:00 [#/volume on in AM ] in source Unspecifi data ed specimen by Automated count Erythrocy 27 - 31.2 pg Normal No Feb 20 te mean informati 2017 6:00 corpuscul on in AM ar source hemoglobi data n [Entitic mass] Erythrocy 31.8 - g/dl Normal No Feb 20 te mean 35.4 informati 2017 6:00 corpuscul on in AM ar source hemoglobi data n concentra tion [Mass/vol ume] by Automated count Erythrocy 82.2 - fl Normal No Feb 20 te mean 97.8 informati 2016 6:00 corpuscul on in AM ar volume source [Entitic data volume] by Automated count Monocytes 0.1 - 1.0 K/mm3 Normal No Feb 20 informati 2016 6:00 [#/volume on in AM ] in source Blood by data Automated count Monocytes 1.7 - 9.3 % Normal No Feb 20 /100 informati 2017 6:00 leukocyte on in AM s in source Blood by data Automated count Platelet 7.4 - fl Normal No Feb 20 mean 10.4 informati 2016 6:00 volume on in AM [Entitic source volume] data in Blood by Automated count Platelets 142 - 424 K/mm3 Normal No Feb 20 informati 2017 6:00 [#/volume on in AM ] in source Blood data Erythrocy 4.2 - 5.4 M/mm3 Normal No Feb 20 alfredo informati 2017 6:00 [#/volume on in AM ] in source Amniotic data fluid Erythrocy 11.5 - % Normal No Feb 20 te 17.5 informati 2017 6:00 distribut on in AM ion width source [Entitic data volume] by Automated count Leukocyte 4.8 - K/MM3 Normal No Feb 20 s 10.8 informati 2016 6:00 [#/volume on in AM ] in source Blood data
--- OUTSIDE RECORDS SUMMARY | 2017-02-20 06:32 | External Medical Summary Rpt | CCD ---
Demographics Preferred Language Sami Marital Status Unknown Baptist Affiliation Unknown Race Unknown Ethnic Group Unknown Author Author , RAYSHAWN TABARES Address Unknown Phone Immunization Unable to retrieve immunization data due to connection failure with Immunization Registry. Please try again later.
[2017-02-20 06:34] LABS: BUN 13 mg/dL (7-18)
[2017-02-20 06:35] LABS: GFR (ESTIMATED) 83 ML/MIN (59-)
--- NOTE | 2017-02-20 07:04 | Emergency Room Report ---
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 N Clinical Suspician of Infection? N Mental Status: 1 - Regular (Normal Baseline) Sepsis Risk:Low Sepsis Risk Have you (or family members/close friends) recently traveled outside the [place]? N If Yes, where/when: Have you had exposure to infectious disease within the past month? N TB? Other? Specify: Source patient, RN notes reviewed, family, old records Exam Limitations no limitations Comment 3 day hx of rt sided chest pain with pain worse with insp but no rash or trauma Cardiac Chest Pain Chest pain indicative of cardiac No Timing/Duration this evening Severity moderate ALLERGIES Coded Allergies: No Known Allergies (02/20/17) Home Medications Reported Medications Citalopram Hydrobromide (Celexa) 100 MG PO DAILY Montelukast Sodium (Singulair) 10 MG PO QHS OMEPRAZOLE MAGNESIUM (Prilosec 20MG) 20 MG PO DAILY IBUPROFEN MICRONIZED (IBUPROFEN 600MG) 600 MG PO Q8HP PRN PAIN Buspirone Hcl 15 MG PO DAILY History Medical History General CAD? No Angina: No [place]: No Hypertension? Yes Hyperlipidemia? No CHF? No DVT? No PE? No COPD? Yes Asthma? No Anemia? No GERD? No Gastric ulcers? No GI Bleed? No Hernia? No Thyroid Problems? No Hypothyroidism? No CVA? No Seizures? No Diabetes? No Renal Insuffiency? No End Stage Renal Disease? No UTI? No Stones? No BPH? No GB Disease: No Nephritic Syndrome? No Asplenia? No Hepatitis? No Sickle Cell Disease? No Arthritis? No Migraines? No Cataracts? No Glaucoma? No MRSA? No HIV? No TB? No Anxiety? No Depression? No Cancer? No More? No Immunization Hx Ped.Immunizations UTD No DT/Tetanus > 10 Years Ago Surgical Hx Previous Surgery?Y TUBAL Gallbladder (Other) KNEE BILATERAL HANDS Social History Smoking Hx Smoker: Current Every Day Smoker Tobacco: Yes Type Cigarettes Packs/day 1 1/2 - 2 Packs Are you/the child exposed to second-hand smoke: No Alcohol Alcohol: No Drugs none Review of Systems All Other Systems Reviewed and Negative Constitutional denies fever Eyes denies drainage ENT denies: ear pain, epistaxis, throat pain. Respiratory denies cough, denies shortness of breath, denies wheezing Cardiovascular see HPI, chest pain, denies palpitations, denies syncope Gastrointestinal denies abdominal pain, denies diarrhea, denies vomiting Genitourinary denies: dysuria, frequency, hesitancy. Musculoskeletal denies back pain, denies joint pain, denies neck pain Skin denies rash Psychiatric/Neurological denies headache, denies seizure Physical Exam Vital Signs Vital Signs Date Time Temp Pulse Resp B/P Pulse O2 O2 Flow FiO2 Ox Delivery Rate 02/20 729 98.2 66 16 176/68 96 02/20 0727 98.2 66 16 176/68 96 02/20 0651 67 14 163/70 97 02/20 0558 20 02/20 0547 98.2 71 20 173/62 96 - WBC >12,000 or <4,000 or 10% bands? 2 or more SIRS Criteria Met? B/P:163/70 MAP:99 Creatinine >2.0? UA output<0.5ml/kg/hr for 2 hrs? Platelet count >100,000? Lactate >2.0mmol/1? INR >1.2 or PTT > than 60 sec? Evidence of Organ Dysfunction? Provider documented clinical suspician of infection? N Sepsis Criteria Count: 1 Sepsis Risk: Low Sepsis Risk General Appearance no apparent distress Eye Exam - bilateral eye PERRL, bilateral eye EOMI Ear, Nose, Throat normal ENT inspection Neck non-tender Respiratory Status No: respiratory distress. Lung Sounds bilateral: lungs clear. 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 No Results/Orders Laboratory Tests 02/20/17 0600: Sodium 139, Potassium 3.7, Chloride 103, Carbon Dioxide 26, BUN 13, Creatinine 0.7, Estimated Creat Clear 79, Estimated GFR (MDRD) 83, Glucose 104, Calcium 9.3 , Total Bilirubin 0.2, AST 13 L, ALT 14, Alkaline Phosphatase 73, Creatine Kinase 33, CK-MB (CK-2) Rel Index 2.1, CK and CKMB Interp 0.7, Troponin I < 0.02 , Total Protein 7.6, Albumin 3.9, Globulin 3.7 H, Albumin/Globulin Ratio 1.1, WBC 9.8, RBC 4.65, Hgb 13.6, Hct 39.9, MCV 85.9, RDW 13.1, Plt Count 254, MPV 8.2, Gran % 57.7, Gran # 5.6, Lymphocytes % 33.2, Monocytes % 5.2, Eosinophils % 3.2, Basophils % 0.8, Lymphocytes # 3.3, Monocytes # 0.5, Eosinophils # 0.3, Basophils # 0.1, PUBS MCHC 34.0, MCH 29.3 Current Medication Orders Sig/Lisa Start time Last Medication Dose Route Stop Time Status Admin Methylprednisolone 125 MG ONCE ONE 02/20 715 DC 02/20 Sodium Succinate IV 02/20 Methylprednisolone 0 .STK-MED ONE 02/20 715 DC Sodium Succinate .ROUTE Aspirin 324 MG ONCE ONE 02/20 615 DC 02/20 PO 02/21 616 06 Aspirin 0 .STK-MED ONE 02/20 601 DC .ROUTE Ketorolac 30 MG ONCE ONE 02/20 600 DC 02/20 Tromethamine IV 02/20 601 0558 Sodium Chloride 10 ML PRN PRN 02/20 600 DCD IV 02/21 547 Ketorolac 0 .STK-MED ONE 02/20 557 DC Tromethamine .ROUTE Orders Procedure Date/time Status 12 LEAD EKG-NIECY (INITIAL) 02/20 550 Active ELECTROCARDIOGRAM REQUEST 02/20 547 Active IV SALINE LOCK 02/20 547 Active CBC WITH AUTO DIFF 02/20 547 Complete CARDIAC ENZYMES 02/20 547 Complete CHEM 12 PROFILE 02/20 547 Complete 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 ST/Twave chgs XRAY/CT/US XRAY/CT/US XRAY chest XR interpretation by reviewed by me Xray Results normal/NAD Departure Departure Time of Disposition 0810 Disposition Against Medical Advice Clinical Impression Primary Impression: Atypical chest pain Secondary Impressions: Pleurisy Condition STABLE Patient Instructions DI for Atypical Chest Pain Additional Instructions see pcp for follow up Discharge Counseling Counseled pt/family regarding diagnosis, test results, follow up needs ED Critical Care Critical Care No Comments pt had to leave before second set of enz and card consult and possible echo at 0812
--- NOTE | 2017-02-20 07:08 | RADIOLOGY REPORT PS360 ---
CHEST(2 VIEWS-NOT PORTABLE) HISTORY: Right-sided chest pain RIGHT BREAST PAIN ORDERING PHYSICIAN: Berhane Roche MD PATIENT AGE: 71 years COMPARISON: None available FINDINGS: The cardiomediastinal silhouette and pulmonary vascularity are within normal limits. The lungs are clear without infiltrates or suspicious nodules. TThere is mild blunting of the posterior costophrenic sulcus on the left There is some minimal pleural thickening in the right apex nonspecific Mild degenerative changes thoracic spine. IMPRESSION: 1. Minimal dural thickening in the right apex versus overlying soft tissue density. 2. Possible small left effusion
[2017-02-20 07:29] VITALS: BP 176/68
== END 2017-02-20 07:43 | disposition left against medical advice (07) ==
LOC: ER 05:36
PROVIDERS: Emergency Medicine
DX: R07.9 Chest pain, unspecified (principal); I10 Essential (primary) hypertension; J44.9 Chronic obstructive pulmonary disease, unspecified; Z79.899 Other long term (current) drug therapy; Z72.0 Tobacco use